=== PATIENT | female | born 1960 | race African-American/Black ===

== ENCOUNTER 2022-04-25 05:45 | Inpatient (IN) | payer OTHER ==
[~2022-04-25] VITALS: Ht 157.5 cm; Wt 66.2 kg
--- NOTE | 2022-04-25 05:45 | NUR ---
PT OFFLOADED TO BED 9
[2022-04-25 05:48] VITALS: BP 157/88
--- NOTE | 2022-04-25 06:00 | NUR ---
Patient resting in bed, A/Ox4, chest and fall symmetrical, no s/s of distress, patient on monitor.
--- NOTE | 2022-04-25 06:04 | NUR ---
ER physician at bedside assessing patienet
[2022-04-25] MEDS ORDERED: IPRATROPIUM 0.02% 0.5 MG/2.5 ML NEBU INH ONE (06:05)
[2022-04-25] MEDS ORDERED: ALBUTEROL 0.083% 2.5 MG/3 ML NEBU INH ONE ×2 (06:05→08:25)
[2022-04-25] MEDS ORDERED: methylPREDNISolone SS 125 MG/2 ML VIAL IVP ONE (06:05)
[2022-04-25] MEDS ORDERED: MAG SULF 2000 MG/WATER PREMIX 50 ML IV ONE (06:05)
[2022-04-25] MEDS ORDERED: NACL 0.9% 1,000 ML IV ONE (06:50)
--- NOTE | 2022-04-25 07:12 | NUR ---
Change of shift report given to AM shift Nurse Enoch LANE. AM shift Nurse Enoch RN verbalized understanding of report, no further questions.
--- NOTE | 2022-04-25 07:19 | NUR ---
report received from frank austin. pt aao x4. resp even and nonlabored. reports feeling better. rt @ bedside.on 2 lpm via nc spo2 91 %. mag sulf iv running. tachy @ 110. pending dispo
--- NOTE | 2022-04-25 07:53 | NUR ---
lab @ [facility] for blood draw
--- NOTE | 2022-04-25 08:25 | NUR ---
called rt for breathing tx
[2022-04-25 08:27] LABS: BASOPHILS % (AUTO) 0.2 % (0.0-2.0); EOSINOPHILS % (AUTO) 0.1 % (0.0-4.0); HEMATOCRIT 42.2 % (36-48); HEMOGLOBIN 13.9 g/dL (12.0-16.0); LYMPHOCYTES # (AUTO) 3.3 K/uL (2.5-16.5); LYMPHOCYTES % (AUTO) 21.5 % (20.5-51.1); MEAN CORPUSCULAR HEMOGLOBIN 29 pg (27-31); MEAN CORPUSCULAR HGB CONC 33 g/dL (33-37); MEAN CORPUSCULAR VOLUME 89.1 fL (80-94); MONOCYTES % (AUTO) 6.4 % (1.7-9.3); NEUTROPHILS % (AUTO) 71.8 % (42.2-75.2); PLATELET COUNT (AUTO) 312 K/uL (140-450); RED BLOOD CELL COUNT(AUTO) 4.73 MIL/uL (4.20-5.40); WHITE BLOOD COUNT (AUTO) 15.3 K/uL (4.8-10.8)
[2022-04-25 08:33] LABS: ALBUMIN 3.6 g/dL (3.4-5.0); ANION GAP 16.1 (8-16); ASPARTATE AMINOTRANSFERASE 10 U/L (15-37); CHLORIDE 92 mmol/L (98-107); CREATININE 0.9 mg/dL (0.6-1.3); GFR ARICAN-AMERICAN 82 mL/min (>90); POTASSIUM 4.1 mmol/L (3.5-5.1); SODIUM SERUM 131 mmol/L (136-145); TOTAL BILIRUBIN 0.9 mg/dL (0.0-1.0); UREA NITROGEN, BLOOD 12 mg/dL (7-18)
[2022-04-25 08:34] LABS: GLUCOSE 426 mg/dL (74-106)
[2022-04-25] MEDS ORDERED: INSULIN REGULAR, HUMAN 100 UNIT/ML VIAL IVP ONE (09:15)
[2022-04-25] MEDS ORDERED: OXYC40TA PO (10:20)
[2022-04-25] MEDS ORDERED: METF-346 PO (10:20)
--- NOTE | 2022-04-25 10:39 | NUR ---
repeat bs 361. pt aao x4. resp even and nonlabored. pending admission
--- NOTE | 2022-04-25 11:04 | NUR ---
Patient will be admitted to care of . Admited to TELE. Will go to room. Belongings list completed. Report to .
[2022-04-25] MEDS ORDERED: ONDANSETRON 4 MG/2 ML VIAL IVP PRN (11:10)
[2022-04-25] MEDS ORDERED: ACETAMINOPHEN 325 MG TAB PO PRN (11:10)
[2022-04-25] MEDS ORDERED: DEXTROSE 50% 50 ML SYR IVP PRN (11:10)
[2022-04-25] MEDS ORDERED: HYDROcodone/APAP 7.5/325 MG 1 TAB PO PRN (11:10)
[2022-04-25] MEDS ORDERED: AZITHROMYCIN 250 MG TAB PO SCH (11:16)
--- NOTE | 2022-04-25 11:43 | NUR ---
RECIEVED PATIENT FROM ED.GOT REPORT FROM ED NURSE.PATIENTS VS ON ADMISSION BP 112/69,18 RR, 85 KY, 95% SATURATION ,ON 2L NC.POC DISCUSSED.ALL SAFETY MEASURES IN PLACE.CALL
[2022-04-25 12:06] LABS: CHOL/HDL RATIO 4.1 (1-4.5); FREE T4 (FREE THYROXINE) 1.35 ng/dL (0.76-1.46); MAGNESIUM 2.2 mg/dL (1.8-2.4); PHOSPHORUS 3.9 mg/dL (2.5-4.9); THYROID STIMULATING HORMONE 0.33 uIU/mL (0.34-3.74)
[2022-04-25] MEDS: BLOOD GLUCOSE MONITORING 1 DEV DEV FS SCH ×3 (12:17→20:35)
[2022-04-25] MEDS: INSULIN LISPRO SLIDING SCALE 100 UNITS/ML VIAL SUBQ PRN ×3 (12:49→20:36)
[2022-04-25] MEDS: methylPREDNISolone SS 125 MG/2 ML VIAL IVP SCH ×2 (13:15→20:37)
--- NOTE | 2022-04-25 15:18 | NUR ---
PATIENT COMPLAINS OF PAIN,REFUSING NORCO.PAGED DR REGARDING THE RECONCILE MEDS.
[2022-04-25] MEDS ORDERED: oxyCODONE 40 MG TABER PO PRN (15:25)
[2022-04-25 16:00] VITALS: BP 99/69
--- NOTE | 2022-04-25 16:06 | NUR ---
PATIENT HAS BEEN SCREENED AND CATEGORIZED MODERATE NUTRITION RISK. PATIENT WILL BE SEEN WITHIN 3-5 DAYS OF ADMISSION. REVIEWED BY NEETA SALTER RD Addendum: 04/28/22 at [address] FNS CONSULT HAS BEEN RECEIVED FOR UNCONTROLLED DIABETES. PATIENT HAS BEEN RE-SCREENED HIGH RISK AND WILL BE SEEN WITHIN 1-2 DAYS OF RECEIVING THE FNS CONSULT. NEETA SALTER RD
[2022-04-25] MEDS: oxyCODONE 10 MG TABER PO PRN (16:51)
[2022-04-25] MEDS: GABAPENTIN 100 MG CAP PO SCH (17:00)
[2022-04-25] MEDS: metFORMIN 500 MG TAB PO SCH (17:12)
[2022-04-25 18:08] LABS: APPEARANCE,URINE CLEAR (CLEAR); BILIRUBIN,URINE NEGATIVE (NEGATIVE); BLOOD, URINE NEGATIVE (NEGATIVE); COLOR,URINE YELLOW (YELLOW); LEUKOCYTE ESTERASE ,URINE NEGATIVE (NEGATIVE); NITRITE, URINE NEGATIVE (NEGATIVE); UGLUCOSE 3+ (NEGATIVE)
[2022-04-25 18:47] LABS: BARBITURATE, URINE NEGATIVE ng/ml (NEG <=200); BENZODIAZEPINE, URINE NEGATIVE ng/mL (NEG <=200); CANNABINOID, URINE NEGATIVE ng/mL (NEG <=50); COCAINE, URINE NEGATIVE ng/mL (NEG <=300); OPIATE, URINE NEGATIVE ng/mL (NEG <=2000); PHENCYCLIDINE SCREEN,URINE NEGATIVE ng/mL (NEG <=25)
--- NOTE | 2022-04-25 19:30 | NUR ---
RECEIVED PT IN BED AWAKE, ALERT AND ORIENTED X 4. DENIES PAIN. DENIES SHORTNESS OF BREATH. SKIN WARM AND DRY TO TOUCH. BED IN THE LOWEST AND LOCKED POSITION FOR SAFETY, CALL LIGHT IN REACH.
--- NOTE | 2022-04-25 19:30 | NUR ---
ENDORSED PATIENT TO SENIOR TRAINING AND DEVELOPMENT REP NURSE FOR CONTINUITY OF CARE,ON 4L NASAL CANNULA.REPORTED MD REGARDING THE COMPLAINS OF COUGH.NO SIGNS OF DISTRESS NOTED.MURSS1
[2022-04-25 20:00] VITALS: BP 114/63
--- NOTE | 2022-04-25 20:18 | NUR ---
INFORMED DR. AVILA THAT BLOOD SUGAR IS 406 REPEATED 404, 10 UNITS OF HUMULOG TO BE GIVEN PER SLIDING SCALE, PER MD NO ADDITIONAL ORDER.
[2022-04-25] MEDS: DOCUSATE SODIUM 100 MG GELCAP PO SCH (20:37)
[2022-04-25] MEDS: guaiFENesin 20 MG/ML UDC PO PRN (20:37)
[2022-04-25] MEDS: ENALAPRIL 10 MG TAB PO SCH (20:37)
[2022-04-25] MEDS: ATORVASTATIN 20 MG TAB PO SCH ×2 (20:37→20:42)
[2022-04-26] VITALS: BP 105/77
--- NOTE | 2022-04-26 00:09 | NUR ---
INFORMED DR. AVILA THAT PT IS TAKING OXYCODONE EVERY 8 HRS, PER KEEP EVERY 12 HRS/PRN, KEY CARRIER WAS MADE AWARE AND SPOKE WITH PT, AND INFORMED MD THAT THIS IS PT'S PAIN MANAGEMENT ORDER. PER MD WILL SEE PT IN AM BUT NO CHANGE IN FREQUENCY. RN AND KEY CARRIER SPOKE WITH PT, AGREED TO STAY. PROVIDED HOT TEA AND INFORMED PT THAT WILL GIVE MEDICATION SOON IT CAN BE GIVEN. PT AGREEABLE AT THIS TIME. CALL LIGHT IN REACH, ENCOURAGED TO CALL IF ASSISTANCE IS NEEDED.
--- NOTE | 2022-04-26 01:12 | NUR ---
ROUNDING DONE, PT WITH EYES CLOSED. BREATHING EVEN AND UNLABORED. CALL LIGHT IN REACH.
[2022-04-26] MEDS: guaiFENesin 20 MG/ML UDC PO PRN ×2 (02:06→21:22)
[2022-04-26] MEDS: ALBUTEROL SULFATE/IPRATROPIU 3 ML SOL IH SCH ×4 (02:19→19:08)
[2022-04-26 04:00] VITALS: BP 128/75
[2022-04-26] MEDS: oxyCODONE 10 MG TABER PO PRN ×3 (04:34→20:54)
[2022-04-26] MEDS: methylPREDNISolone SS 125 MG/2 ML VIAL IVP SCH (05:14)
[2022-04-26 05:46] LABS: BASOPHILS % (AUTO) 0.1 % (0.0-2.0); HEMATOCRIT 41.5 % (36-48); HEMOGLOBIN 13.4 g/dL (12.0-16.0); MEAN CORPUSCULAR HEMOGLOBIN 29 pg (27-31); MEAN CORPUSCULAR HGB CONC 32 g/dL (33-37); MEAN CORPUSCULAR VOLUME 89.5 fL (80-94); MONOCYTES # (AUTO) 0.4 K/uL (0.8-1.0); MONOCYTES % (AUTO) 2.7 % (1.7-9.3); NEUTROPHILS # (AUTO) 12.6 K/uL (1.8-7.7); NEUTROPHILS % (AUTO) 90.2 % (42.2-75.2); PLATELET COUNT (AUTO) 304 K/uL (140-450); RED BLOOD CELL COUNT(AUTO) 4.63 MIL/uL (4.20-5.40); RED CELL DISTRIBUTION WIDTH 13.7 % (11.6-13.7)
--- NOTE | 2022-04-26 06:13 | NUR ---
ASSISTED PT TO THE BATHROOM AND BACK IN BED, VOIDED WITHOUT DIFFICULTY. MADE COMFORTABLE, PROVIDED WARM BLANKET. DENIES PAIN AT THIS TIME. ALL NEEDS ATTENDED TO. SAFETY PRECAUTIONS MAINTAINED DURING THE SHIFT, CALL LIGHT PLACED WITHIN REACH.
[2022-04-26 06:28] LABS: ANION GAP 14.7 (8-16); CARBON DIOXIDE 27.1 mmol/L (21-32); CREATININE 0.9 mg/dL (0.6-1.3); POTASSIUM 4.8 mmol/L (3.5-5.1)
[2022-04-26 06:29] LABS: MAGNESIUM 2.3 mg/dL (1.8-2.4); PHOSPHORUS 3.5 mg/dL (2.5-4.9)
[2022-04-26] MEDS: INSULIN LISPRO SLIDING SCALE 100 UNITS/ML VIAL SUBQ PRN ×4 (06:30→20:23)
[2022-04-26] MEDS: BLOOD GLUCOSE MONITORING 1 DEV DEV FS SCH ×4 (06:30→20:21)
--- NOTE | 2022-04-26 06:47 | NUR ---
LAB CALLED FOR A GLUCOSE CRITICAL RESULT OF 412. BLOOD SUGAR FINGER STICK DONE 369 MG/DL.
--- NOTE | 2022-04-26 07:23 | NUR ---
ENCOURAGED PATIENT FOR TERESA BREATH AND COUGH DURING THERAPY C/O NASAL DRYNESS WITH SUPPLEMENTAL OXYGEN USE POST HHN THERAPY ADDED HUMIDIFIER
[2022-04-26 08:00] VITALS: BP 141/69
[2022-04-26] MEDS: metFORMIN 500 MG TAB PO SCH ×2 (08:46→16:37)
[2022-04-26] MEDS: PANTOPRAZOLE 40 MG INJ VIAL IVP SCH (08:46)
[2022-04-26] MEDS: ASPIRIN 81 MG TAB.CHEW PO SCH (08:46)
[2022-04-26] MEDS: DOCUSATE SODIUM 100 MG GELCAP PO SCH ×2 (08:47→20:21)
[2022-04-26] MEDS: ENALAPRIL 10 MG TAB PO SCH ×2 (08:48→20:22)
--- NOTE | 2022-04-26 08:50 | NUR ---
PER PT, SHE DOES NOT TAKE GABAPENTIN IT GIVES HER HEADACHES, AND HER PRIMARY CARE PROVIDER HAS DISCONTINUED IT. PT ALSO REFUSED HEPARIN. WILL NOTIFY PRIMARY MD.
[2022-04-26] MEDS ORDERED: AZITHROMYCIN 250 MG TAB PO SCH (09:00)
[2022-04-26] MEDS: GABAPENTIN 100 MG CAP PO SCH ×3 (09:00→17:00)
--- NOTE | 2022-04-26 10:20 | NUR ---
POST AMBULATION WITH PHYSICAL THERAPY C/O SOB HHN PRN THERAPY GIVEN AT THIS TIME
[2022-04-26] MEDS: ALBUTEROL SULFATE/IPRATROPIU 3 ML SOL IH PRN ×2 (11:07→17:24)
[2022-04-26 12:00] VITALS: BP 125/68
[2022-04-26] MEDS: methylPREDNISolone SS 40 MG/ML VIAL IVP SCH ×2 (12:55→20:21)
--- NOTE | 2022-04-26 12:59 | NUR ---
ADMINISTERED PRN OXYCONTIN FOR GENERALIZED PAIN 10/16.
--- NOTE | 2022-04-26 13:12 | NUR ---
ADMINISTERED 10 UNITS OF HUMALOG PER SLIDING SCALE FOR BLOOD SUGAR 474. NOTIFIED DR. AVILA, PER DR. AVILA CONTINUE TO MONITOR SUGAR LEVELS.
--- NOTE | 2022-04-26 13:13 | NUR ---
SATURATION 98% ON SUPPLEMENTAL OXYGEN AT 3 LPM VIA NC POST HHN THERAPY TITRATED FIO2 TO 2 LPM SHILPI/DOMINGO NOTIFIED
[2022-04-26 16:00] VITALS: BP 152/76
--- NOTE | 2022-04-26 16:47 | NUR ---
NOTIFIED DR. AVILA OF BLOOD SUGAR 490. ADMINISTERED 10 UNITS OF HUMALOG PER SLIDING SCALE.
[2022-04-26] MEDS ORDERED: INSULIN LANTUS 100 UNITS/ML 10 ML VIAL SUBQ ONE (17:00)
--- NOTE | 2022-04-26 17:14 | NUR ---
PER DR. AVILA, NEW ORDER FOR 30 UNITS OF LANTUS DAILY, AND ONE TIME NOW TO BE GIVEN.
--- NOTE | 2022-04-26 19:17 | NUR ---
ENDORSED PT TO NIGHTSHIFT NURSE PADGETT FOR CONTINUITY OF CARE. PT IN STABLE CONDITION.
--- NOTE | 2022-04-26 19:20 | NUR ---
RECEIVED PT IN BED AWAKE,ALERT AND ORIENTED. DENIES PAIN. NO ACUTE RESPIRATORY DISTRESS. SKIN WARM AND DRY TO TOUCH. SAFETY PRECAUTION IN PLACE, CALL LIGHT IN REACH.
--- NOTE | 2022-04-26 19:40 | NUR ---
INFORMED DR. AVILA HR SUSTAINING 130'S, AND SHE STARTED FEELING PALPITATIONS AFTER GIVEN LANTUS. NEW ORDER GIVEN BY AND WILL BE CARRIED OUT.
[2022-04-26] MEDS ORDERED: PROPRANOLOL 20 MG TAB ONE (19:44)
[2022-04-26] MEDS: PROPRANOLOL 20 MG TAB PO SCH (19:47)
[2022-04-26 20:00] VITALS: BP 121/52
[2022-04-26] MEDS: ATORVASTATIN 20 MG TAB PO SCH (20:22)
--- NOTE | 2022-04-26 20:25 | NUR ---
BS-497 REPEATED 485 MG.DL, INSULIN GIVEN PER SLIDING SCALE, CALL PLACED TO DR. LIN. HUGGINS AWARE EARLIER DURING THE DAY AND STARTED ON LANTUS.
--- NOTE | 2022-04-26 21:00 | NUR ---
PER PT DOESN'T WANT TO BE BOTHERED IF SHE IS ASLEEP WITH VITAL SIGNS AND BREATHING TREATMENT, INFORMED RT OBDULIA. PER RT SHE WAS ALSO INFORMED BY PT.
[2022-04-27] VITALS: BP 126/75
[2022-04-27] MEDS: ALBUTEROL SULFATE/IPRATROPIU 3 ML SOL IH PRN (00:28)
[2022-04-27 04:00] VITALS: BP 138/84
[2022-04-27] MEDS: oxyCODONE 10 MG TABER PO PRN ×3 (04:59→20:37)
[2022-04-27] MEDS: guaiFENesin 20 MG/ML UDC PO PRN ×2 (04:59→11:14)
[2022-04-27] MEDS: methylPREDNISolone SS 40 MG/ML VIAL IVP SCH ×2 (05:22→20:36)
--- NOTE | 2022-04-27 05:51 | NUR ---
PT SAID SHE DID NOT WANT HER 0100 TX BECAUSE SHE NEEDED TO SLEEP. PT WAS COUGHING BADLY AND COULD NOT SLEEP SO ASKED FOR HER TREATMENT WHICH WAS GIVEN AT 0028. WITHIN 30 MINUTES PT'S COUGHING SUBSIDED AND SHE WAS ABLE TO FALL ASLEEP.
[2022-04-27 06:27] LABS: BASOPHILS % (AUTO) 0.3 % (0.0-2.0); HEMATOCRIT 41.2 % (36-48); HEMOGLOBIN 13.5 g/dL (12.0-16.0); LYMPHOCYTES # (AUTO) 1.2 K/uL (2.5-16.5); LYMPHOCYTES % (AUTO) 8.5 % (20.5-51.1); MEAN CORPUSCULAR HEMOGLOBIN 29 pg (27-31); MEAN CORPUSCULAR HGB CONC 33 g/dL (33-37); MEAN CORPUSCULAR VOLUME 89.2 fL (80-94); MONOCYTES # (AUTO) 0.5 K/uL (0.8-1.0); MONOCYTES % (AUTO) 3.6 % (1.7-9.3); NEUTROPHILS # (AUTO) 12.5 K/uL (1.8-7.7); NEUTROPHILS % (AUTO) 87.6 % (42.2-75.2); PLATELET COUNT (AUTO) 346 K/uL (140-450); RED BLOOD CELL COUNT(AUTO) 4.62 MIL/uL (4.20-5.40); WHITE BLOOD COUNT (AUTO) 14.2 K/uL (4.8-10.8)
--- NOTE | 2022-04-27 06:30 | NUR ---
PATIENT IS AWAKE, WATCHING TV. DENIES PAIN AT THIS TIME. ALL NEEDS ATTENDED TO. SAFETY PRECAUTIONS IN PLACE, CALL LIGHT REMAINS WITHIN REACH.
[2022-04-27 06:31] LABS: ANION GAP 11.7 (8-16); CARBON DIOXIDE 31.2 mmol/L (21-32); CREATININE 0.9 mg/dL (0.6-1.3); POTASSIUM 4.9 mmol/L (3.5-5.1)
[2022-04-27] MEDS: BLOOD GLUCOSE MONITORING 1 DEV DEV FS SCH ×4 (06:31→21:15)
[2022-04-27] MEDS: INSULIN LISPRO SLIDING SCALE 100 UNITS/ML VIAL SUBQ PRN ×4 (06:32→21:16)
[2022-04-27 06:40] LABS: MAGNESIUM 2.3 mg/dL (1.8-2.4); PHOSPHORUS 3.2 mg/dL (2.5-4.9)
[2022-04-27] MEDS: ALBUTEROL SULFATE/IPRATROPIU 3 ML SOL IH SCH ×3 (07:45→19:27)
[2022-04-27 08:00] VITALS: BP 129/82
[2022-04-27] MEDS ORDERED: INSULIN LANTUS 100 UNITS/ML 10 ML VIAL SUBQ SCH (09:00)
[2022-04-27] MEDS: GABAPENTIN 100 MG CAP PO SCH ×3 (09:00→17:09)
[2022-04-27] MEDS: DOCUSATE SODIUM 100 MG GELCAP PO SCH ×2 (10:47→20:39)
[2022-04-27] MEDS: ASPIRIN 81 MG TAB.CHEW PO SCH (10:48)
[2022-04-27] MEDS: PROPRANOLOL 20 MG TAB PO SCH ×2 (10:51→20:42)
[2022-04-27] MEDS: PANTOPRAZOLE 40 MG INJ VIAL IVP SCH (10:54)
[2022-04-27] MEDS: ENALAPRIL 10 MG TAB PO SCH ×2 (10:55→20:40)
[2022-04-27] MEDS: metFORMIN 500 MG TAB PO SCH ×2 (11:06→17:07)
[2022-04-27 12:00] VITALS: BP 121/73
--- NOTE | 2022-04-27 13:25 | NUR ---
PATIENT REFUSING HHN THERAPY AT THIS TIME REQUESTING AT A LATER TIME PATIENT VISITING WITH FAMILY/FRIEND NO DISTRESS NOTED
[2022-04-27] MEDS ORDERED: INSULIN NPH HUM/REG INSULIN HM 100 UNIT/ML 10 ML VIAL SUBQ ONE (14:40)
[2022-04-27 16:00] VITALS: BP 131/83
--- NOTE | 2022-04-27 19:20 | NUR ---
RECEIVED REPORT FROM DAY SHIFT NURSE FOR CONTINUITY OF CARE. PATIENT AWAKE AND STABLE IN BED. COMPLAINTS OF MODERATE PAIN AT THIS TIME. RUNNING ON 2L NASAL CANULA. IV SITE AT RIGHT FOREARM 20 GAUGE, INTACT AND PATENT. WILL CONTINUE TO MONITOR.
[2022-04-27 20:00] VITALS: BP 111/67
--- NOTE | 2022-04-27 20:00 | NUR ---
Patient's Plan of Care was discussed and reviewed with FABRICIO TOMAS.
--- NOTE | 2022-04-27 20:50 | NUR ---
ADMINISTERED IVP SOLU-MEDROL TO PATIENT. MEDICATION WAS GIVEN TO ME BY FABRICIO TOMAS TO ADMINISTER. I VERIFIED MEDICATION IN THE EMAR WITH FABRICIO TOMAS TO ENSURE ACCURACY OF MEDICATION BEING ADMINISTERED. PATIENT TOLERATED WELL. INFORMED FABRICIO TOMAS OF MEDICATION ADMINISTRATION.
--- NOTE | 2022-04-27 20:53 | NUR ---
IVP SOLU-MEDROL ADMINISTERED TO PATIENT BY DOMINGO Melgoza MEDICATION WAS VERIFIED WITH DOMINGO Melgoza TO ENSURE ACCURACY OF MEDICATION ADMINISTRATION.
[2022-04-27] MEDS: ATORVASTATIN 20 MG TAB PO SCH (21:00)
[2022-04-28] VITALS: BP 122/79
[2022-04-28] MEDS: ALBUTEROL SULFATE/IPRATROPIU 3 ML SOL IH PRN (01:21)
[2022-04-28 04:00] VITALS: BP 143/82
[2022-04-28] MEDS: oxyCODONE 10 MG TABER PO PRN ×3 (05:23→22:07)
[2022-04-28 06:22] LABS: BASOPHILS # (AUTO) 0.1 K/uL (0.00-0.22); BASOPHILS % (AUTO) 0.6 % (0.0-2.0); HEMATOCRIT 41.7 % (36-48); HEMOGLOBIN 13.7 g/dL (12.0-16.0); LYMPHOCYTES # (AUTO) 1.3 K/uL (2.5-16.5); LYMPHOCYTES % (AUTO) 13.1 % (20.5-51.1); MEAN CORPUSCULAR HEMOGLOBIN 30 pg (27-31); MEAN CORPUSCULAR HGB CONC 33 g/dL (33-37); MEAN CORPUSCULAR VOLUME 90.1 fL (80-94); MONOCYTES # (AUTO) 0.4 K/uL (0.8-1.0); MONOCYTES % (AUTO) 3.7 % (1.7-9.3); NEUTROPHILS # (AUTO) 8.5 K/uL (1.8-7.7); NEUTROPHILS % (AUTO) 82.6 % (42.2-75.2); PLATELET COUNT (AUTO) 325 K/uL (140-450); RED BLOOD CELL COUNT(AUTO) 4.63 MIL/uL (4.20-5.40); RED CELL DISTRIBUTION WIDTH 13.8 % (11.6-13.7); WHITE BLOOD COUNT (AUTO) 10.3 K/uL (4.8-10.8)
[2022-04-28 06:34] LABS: PHOSPHORUS 3.8 mg/dL (2.5-4.9)
[2022-04-28 06:35] LABS: ANION GAP 11.1 (8-16); CARBON DIOXIDE 30.9 mmol/L (21-32); CREATININE 0.9 mg/dL (0.6-1.3)
[2022-04-28] MEDS: ALBUTEROL SULFATE/IPRATROPIU 3 ML SOL IH SCH ×3 (07:08→19:55)
[2022-04-28] MEDS: BLOOD GLUCOSE MONITORING 1 DEV DEV FS SCH ×4 (07:44→20:33)
[2022-04-28] MEDS: INSULIN LISPRO SLIDING SCALE 100 UNITS/ML VIAL SUBQ PRN ×4 (07:45→20:37)
[2022-04-28 08:00] VITALS: BP 119/79
--- NOTE | 2022-04-28 08:02 | NUR ---
REPORT GIVEN TO DAY SHIFT NURSE FOR CONTINUITY OF CARE. PATIENT IN STABLE CONDITION, 0730 BLOOD GLUCOSE AT 234, 4 UNITS OF HUMALOG WAS ADMINISTERED.
[2022-04-28] MEDS ORDERED: INSULIN LANTUS 100 UNITS/ML 10 ML VIAL SUBQ SCH (09:00)
[2022-04-28] MEDS: GABAPENTIN 100 MG CAP PO SCH ×3 (09:00→17:00)
[2022-04-28] MEDS: methylPREDNISolone SS 40 MG/ML VIAL IVP SCH ×2 (09:27→20:17)
[2022-04-28] MEDS: PANTOPRAZOLE 40 MG INJ VIAL IVP SCH (09:28)
[2022-04-28] MEDS: ASPIRIN 81 MG TAB.CHEW PO SCH (09:39)
[2022-04-28] MEDS: ENALAPRIL 10 MG TAB PO SCH ×2 (09:42→20:24)
[2022-04-28] MEDS: PROPRANOLOL 20 MG TAB PO SCH ×2 (09:45→20:23)
[2022-04-28] MEDS: metFORMIN 500 MG TAB PO SCH ×2 (09:45→17:17)
[2022-04-28] MEDS: DOCUSATE SODIUM 100 MG GELCAP PO SCH ×2 (09:46→20:21)
[2022-04-28] MEDS: INSULIN LANTUS 100 UNITS/ML 10 ML VIAL SUBQ SCH (09:49)
[2022-04-28 12:00] VITALS: BP 123/86
--- NOTE | 2022-04-28 13:27 | NUR ---
SITTING ON SIDE OF BED FOR HHN THERAPY AND LUNCH TRAY SATURATION 97% ON SUPPLEMENTAL OXYGEN AT 3 LOPM VIA NC POST HHN THERAPY TITRATED FIO2 TO 2 LPM
--- NOTE | 2022-04-28 13:57 | NUR ---
SATURATION 96% ON 2LPM VIA NC TOLERATING WELL VANESARN NOTIFIED
--- NOTE | 2022-04-28 14:39 | NUR ---
04/28/22 RD INITIAL ASSESSMENT COMPLETED PLEASE REFER TO NUTRITION ASSESSMENT UNDER CARE ACTIVITY FOR ESTIMATED NUTRITIONAL NEEDS. 1. CONTINUE CCHO 60 GRAM DIET 2. MONITOR GLUCOSE LEVELS, GI, PO INTAKE, AND LAB VALUES. 3. RD TO FOLLOW-UP 3-5 DAYS, MODERATE RISK REVIEWED BY JOSE SALTER RD
[2022-04-28 16:00] VITALS: BP 123/73
[2022-04-28] MEDS: guaiFENesin 20 MG/ML UDC PO PRN (17:37)
--- NOTE | 2022-04-28 19:23 | NUR ---
ENDORSE PATIENT IN STABLE CONDITION TO PM SHIFT NURSE THAT PIV AT L. FOREARM SALINE LOCK.
--- NOTE | 2022-04-28 19:24 | NUR ---
RECD. RESTING IN BED, AWAKE, A/OX4. RESPIRATION EVEN AND UNLABORED. ON 02 AT 2 LITERS VIA N/C, 02 SAT - 97%. IV SALINE LOCK AT THE RIGHT FOREARM G20 , PATENT AND INTACT. WITH OCCASIONAL PRODUCTIVE COUGHING, MINIMAL WHITE SOMETIME YELLOW PHLEGM PER PATIENT, COMES OUT. ON SCHEDULED BREATHING TREATMENT. CARE AND MEDICATIONS FOR THE NIGHT DISCUSSED WITH PATIENT, VERBALIZED REFUSING SOME MEDICATION. EXPLAINED THE IMPORTANCE OF EACH BUT STILL REFUSED. DENIES PAIN 0/10.
[2022-04-28 20:00] VITALS: BP 130/87
--- NOTE | 2022-04-28 20:00 | NUR ---
Patient's Plan of Care was discussed and reviewed with SHAKER TENDER: YONATAN RILEY
--- NOTE | 2022-04-28 20:23 | NUR ---
SCHEDULED MEDICATIONS ADMINISTERED. TOLERATED WELL.
[2022-04-28] MEDS: ATORVASTATIN 20 MG TAB PO SCH (21:00)
[2022-04-29] VITALS: BP 125/79
--- NOTE | 2022-04-29 | NUR ---
SLEEPING COMFORTABLY IN BED. RESPIRATION EVEN AND UNLABORED.
--- NOTE | 2022-04-29 03:00 | NUR ---
REQUESTED TO BREATHING TREATMENT. RT CAME TO SEE PATIENT.
[2022-04-29] MEDS: ALBUTEROL SULFATE/IPRATROPIU 3 ML SOL IH PRN (03:05)
--- NOTE | 2022-04-29 03:05 | NUR ---
PRN BREATHING TX GIVEN AT PT REQUEST
[2022-04-29 04:00] VITALS: BP 136/82
--- NOTE | 2022-04-29 05:30 | NUR ---
RESTING IN BED, WATCHING TV. VERBALIZED FEELING BETTER.
[2022-04-29 05:35] LABS: BASOPHILS % (AUTO) 0.5 % (0.0-2.0); HEMATOCRIT 43.9 % (36-48); HEMOGLOBIN 14.4 g/dL (12.0-16.0); LYMPHOCYTES # (AUTO) 1.9 K/uL (2.5-16.5); LYMPHOCYTES % (AUTO) 18.2 % (20.5-51.1); MEAN CORPUSCULAR HEMOGLOBIN 29 pg (27-31); MEAN CORPUSCULAR HGB CONC 33 g/dL (33-37); MEAN CORPUSCULAR VOLUME 89.6 fL (80-94); MONOCYTES # (AUTO) 0.3 K/uL (0.8-1.0); MONOCYTES % (AUTO) 3.1 % (1.7-9.3); NEUTROPHILS # (AUTO) 8.1 K/uL (1.8-7.7); NEUTROPHILS % (AUTO) 78.2 % (42.2-75.2); PLATELET COUNT (AUTO) 341 K/uL (140-450); RED CELL DISTRIBUTION WIDTH 13.5 % (11.6-13.7); WHITE BLOOD COUNT (AUTO) 10.3 K/uL (4.8-10.8)
[2022-04-29 06:08] LABS: ANION GAP 12.4 (8-16); CREATININE 0.8 mg/dL (0.6-1.3); POTASSIUM 4.4 mmol/L (3.5-5.1)
[2022-04-29 06:22] LABS: MAGNESIUM 1.9 mg/dL (1.8-2.4); PHOSPHORUS 4.2 mg/dL (2.5-4.9)
[2022-04-29] MEDS: BLOOD GLUCOSE MONITORING 1 DEV DEV FS SCH ×4 (06:58→20:34)
[2022-04-29] MEDS: INSULIN LISPRO SLIDING SCALE 100 UNITS/ML VIAL SUBQ PRN ×4 (07:00→20:47)
--- NOTE | 2022-04-29 07:25 | NUR ---
ASSUMED CONTINUITY OF CARE. NO SIGNS AND SYMPTOMS OF ACUTE DISTRESS NOTED. INITIAL ASSESSMENT DONE. KEEP COMFORTABLE ON BED. CALL LIGHT WITHIN REACH.
--- NOTE | 2022-04-29 07:25 | NUR ---
CONDITION REMAIN STABLE. ENDORSED TO MONIKA REGALADO FOR CONTINUITY OF CARE.
[2022-04-29] MEDS ORDERED: VANCOMYCIN PER PHARMACY MC PRN (07:45)
[2022-04-29] MEDS: ALBUTEROL SULFATE/IPRATROPIU 3 ML SOL IH SCH ×3 (07:52→20:44)
[2022-04-29 08:00] VITALS: BP 133/87
[2022-04-29] MEDS: metFORMIN 500 MG TAB PO SCH ×2 (08:06→16:39)
[2022-04-29] MEDS: oxyCODONE 10 MG TABER PO PRN ×2 (08:07→16:39)
--- NOTE | 2022-04-29 08:33 | NUR ---
DC PLANNING ATTEMPTED TO MEET PT AT BEDSIDE HOWEVER, PT MEETING RT FOR BREATHING TX. SW TO FOLLOW
[2022-04-29] MEDS: DOCUSATE SODIUM 100 MG GELCAP PO SCH ×3 (09:00→20:36)
[2022-04-29] MEDS: GABAPENTIN 100 MG CAP PO SCH ×4 (09:00→16:40)
[2022-04-29] MEDS: PANTOPRAZOLE 40 MG INJ VIAL IVP SCH (09:05)
[2022-04-29] MEDS: methylPREDNISolone SS 40 MG/ML VIAL IVP SCH ×2 (09:05→20:36)
[2022-04-29] MEDS: ASPIRIN 81 MG TAB.CHEW PO SCH (09:34)
[2022-04-29] MEDS: ENALAPRIL 10 MG TAB PO SCH ×2 (09:34→20:36)
[2022-04-29] MEDS: PROPRANOLOL 20 MG TAB PO SCH ×2 (09:35→20:36)
[2022-04-29] MEDS: INSULIN LANTUS 100 UNITS/ML 10 ML VIAL SUBQ SCH (09:37)
--- NOTE | 2022-04-29 10:40 | NUR ---
WENT TO BATHROOM WITHOUT ASSISTANCE. TOLERATED WELL. WILL MONITOR.
[2022-04-29] MEDS: VANCOMYCIN HCL 1.25 GM in DEXTROSE 5% 250 ML IV SCH ×2 (11:02→22:37)
[2022-04-29 12:00] VITALS: BP 103/65
[2022-04-29] MEDS ORDERED: FUROSEMIDE 40 MG/4 ML VIAL IVP SCH (12:10)
--- NOTE | 2022-04-29 12:30 | NUR ---
DC PLANNING ASSESSMENT COMPLETE SEE ASSESSMENT FOR DETAILS PT REPORTS DC PLAN IS TO RETURN HOME WITH FAMILY PROVIDING TRANSPORTATION, WHEN MEDICALLY STABLE.
--- NOTE | 2022-04-29 15:37 | NUR ---
PHYSICAL THERAPY CO-SIGN The Physical Therapy Progress Notes documented by Seal Mixer have been reviewed. Reviewed/Co-Signed by: Raquel Estrada Documentation Done by: ADRIANNE ROMAN PTA Addendum: 04/29/22 at 1538 by Raquel Estrada PT Amended: Links added.
[2022-04-29 16:00] VITALS: BP 149/72
[2022-04-29] MEDS: MONTELUKAST SODIUM 10 MG TAB PO SCH (16:41)
--- NOTE | 2022-04-29 19:10 | NUR ---
REPORT GIVEN TO KRISTI SOMMER IN STABLE CONDITION.
--- NOTE | 2022-04-29 19:30 | NUR ---
RECEIVED PT FROM DAY RN FOR CONTINUITY OF CARE. PT AWAKE, ALERT AND ORIENTED X 4, SITTING ON BED. ON ROOM AIR, BREATHING EVEN AND UNLABORED. NO COMPLAINS OF PAIN. NO S/SX OF DISTRESS NOTED. SKIN IS WARM, DRY AND INTACT.IV ON R FA, G20. SL. ALL PRECAUTIONS IN PLACE. CALL LIGHT WITHIN REACH. WILL CONTINUE TO MONITOR.
[2022-04-29 20:00] VITALS: BP 130/92
[2022-04-29] MEDS: ATORVASTATIN 20 MG TAB PO SCH (20:36)
--- NOTE | 2022-04-29 21:00 | NUR ---
SCHEDULED MEDICATIONS GIVEN. PT TOLERATED WELL. WILL CONTINUE TO MONITOR.
[2022-04-30] MEDS: oxyCODONE 10 MG TABER PO PRN ×3 (01:20→18:13)
[2022-04-30] MEDS: guaiFENesin 20 MG/ML UDC PO PRN (03:12)
--- NOTE | 2022-04-30 03:59 | NUR ---
PT ASLEEP. BREATHING EVEN AND UNLABORED, NO S/SX OF RESPIRATORY DISTRESS. ALL PRECAUTIONS IN PLACE. CALL LIGHT WITHIN REACH. WILL CONTINUE TO MONITOR.
[2022-04-30 04:00] VITALS: BP 149/72
[2022-04-30 05:15] LABS: BASOPHILS % (AUTO) 0.3 % (0.0-2.0); EOSINOPHILS % (AUTO) 0.1 % (0.0-4.0); HEMATOCRIT 42.8 % (36-48); HEMOGLOBIN 13.9 g/dL (12.0-16.0); LYMPHOCYTES # (AUTO) 1.8 K/uL (2.5-16.5); LYMPHOCYTES % (AUTO) 15.1 % (20.5-51.1); MEAN CORPUSCULAR HEMOGLOBIN 29 pg (27-31); MEAN CORPUSCULAR HGB CONC 33 g/dL (33-37); MEAN CORPUSCULAR VOLUME 88.9 fL (80-94); MONOCYTES # (AUTO) 0.4 K/uL (0.8-1.0); MONOCYTES % (AUTO) 3.6 % (1.7-9.3); NEUTROPHILS # (AUTO) 9.8 K/uL (1.8-7.7); NEUTROPHILS % (AUTO) 80.9 % (42.2-75.2); PLATELET COUNT (AUTO) 324 K/uL (140-450); RED BLOOD CELL COUNT(AUTO) 4.81 MIL/uL (4.20-5.40); RED CELL DISTRIBUTION WIDTH 13.9 % (11.6-13.7); WHITE BLOOD COUNT (AUTO) 12.1 K/uL (4.8-10.8)
[2022-04-30 05:33] LABS: MAGNESIUM 1.8 mg/dL (1.8-2.4); PHOSPHORUS 3.9 mg/dL (2.5-4.9)
[2022-04-30 05:51] LABS: CARBON DIOXIDE 30.7 mmol/L (21-32); CREATININE 0.8 mg/dL (0.6-1.3); POTASSIUM 4.7 mmol/L (3.5-5.1)
[2022-04-30] MEDS: INSULIN LISPRO SLIDING SCALE 100 UNITS/ML VIAL SUBQ PRN ×4 (06:44→21:24)
[2022-04-30] MEDS: BLOOD GLUCOSE MONITORING 1 DEV DEV FS SCH ×4 (06:52→21:21)
[2022-04-30] MEDS: ALBUTEROL SULFATE/IPRATROPIU 3 ML SOL IH SCH ×3 (06:55→18:57)
--- NOTE | 2022-04-30 06:55 | NUR ---
PT IS STABLE. NO ACUTE EVENTS THROUGHOUT THE NIGHT.ALL NEEDS ATTENDED. NO S/SX OF DISTRESS AT THIS MOMENT. ALL PRECAUTIONS IN PLACE. CALL LIGHT WITHIN REACH. WILL ENDORSE TO DAY SHIFT NURSE.
--- NOTE | 2022-04-30 07:08 | NUR ---
ASSUMED CONTINUITY OF CARE. INITIAL ASSESSMENT DONE. KEEP COMFORTABLE ON BED. CALL LIGHT WITHIN REACH.
[2022-04-30 08:00] VITALS: BP 121/76
--- NOTE | 2022-04-30 08:00 | NUR ---
Patient's Plan of Care was discussed and reviewed with MANUFACTURING ENGINEERING PROFESSOR:
[2022-04-30] MEDS: metFORMIN 500 MG TAB PO SCH ×2 (08:10→17:03)
[2022-04-30] MEDS: GABAPENTIN 100 MG CAP PO SCH ×3 (09:00→17:00)
[2022-04-30] MEDS: DOCUSATE SODIUM 100 MG GELCAP PO SCH ×2 (09:00→21:05)
--- NOTE | 2022-04-30 09:13 | NUR ---
DR. INFANTE CAME SPOKE TO PT. AT BEDSIDE AND INFORMED PT. REFUSAL OF HEPARIN, GABAPENTIN, AND COLACE.
[2022-04-30] MEDS: ASPIRIN 81 MG TAB.CHEW PO SCH (09:14)
[2022-04-30] MEDS: PROPRANOLOL 20 MG TAB PO SCH ×2 (09:14→21:05)
[2022-04-30] MEDS: ENALAPRIL 10 MG TAB PO SCH ×2 (09:14→21:05)
[2022-04-30] MEDS: INSULIN LANTUS 100 UNITS/ML 10 ML VIAL SUBQ SCH (09:21)
[2022-04-30] MEDS: methylPREDNISolone SS 40 MG/ML VIAL IVP SCH ×2 (09:37→21:05)
[2022-04-30] MEDS: PANTOPRAZOLE 40 MG INJ VIAL IVP SCH (09:37)
[2022-04-30] MEDS: VANCOMYCIN HCL 1.25 GM in DEXTROSE 5% 250 ML IV SCH (10:01)
--- NOTE | 2022-04-30 14:10 | NUR ---
1300 BREATHING TREATMENT ON HOLD DUE TO PT SLEEPING. WILL TRY AGAIN.
[2022-04-30 16:00] VITALS: BP 126/65
[2022-04-30] MEDS: MONTELUKAST SODIUM 10 MG TAB PO SCH (17:03)
--- NOTE | 2022-04-30 19:04 | NUR ---
ENDORSED TO BONDERITE OPERATOR NURSE KRISTI SOMMER IN STABLE CONDITION.
--- NOTE | 2022-04-30 19:30 | NUR ---
RECEIVED PT FROM DAY RN FOR CONTINUITY OF CARE. PT AWAKE, ALERT AND ORIENTED X 4, SITTING ON BED. ON ROOM AIR, BREATHING EVEN AND UNLABORED. NO COMPLAINS OF PAIN. NO S/SX OF DISTRESS NOTED. SKIN IS WARM, DRY AND INTACT.IV ON R HAND G22. SL. ALL PRECAUTIONS IN PLACE. CALL LIGHT WITHIN REACH. WILL CONTINUE TO MONITOR.
[2022-04-30] MEDS: ATORVASTATIN 20 MG TAB PO SCH (21:00)
--- NOTE | 2022-04-30 21:30 | NUR ---
SCHEDULED MEDICATIONS GIVEN. PT TOLERATED WELL. WILL CONTINUE TO MONITOR.
[2022-04-30] MEDS ORDERED: VANCOMYCIN 1.25GM PREMIX 250 ML IV SCH (22:00)
[2022-05-01] MEDS: ALBUTEROL SULFATE/IPRATROPIU 3 ML SOL IH PRN (00:44)
[2022-05-01] MEDS: oxyCODONE 10 MG TABER PO PRN ×2 (02:28→10:28)
--- NOTE | 2022-05-01 02:38 | NUR ---
PT ASLEEP. BREATHING EVEN AND UNLABORED, NO S/SX OF RESPIRATORY DISTRESS. ALL PRECAUTIONS IN PLACE. CALL LIGHT WITHIN REACH. WILL CONTINUE TO MONITOR.
[2022-05-01 04:00] VITALS: BP 116/71
[2022-05-01] MEDS: BLOOD GLUCOSE MONITORING 1 DEV DEV FS SCH ×2 (06:33→10:36)
[2022-05-01] MEDS: INSULIN LISPRO SLIDING SCALE 100 UNITS/ML VIAL SUBQ PRN ×2 (06:34→10:36)
[2022-05-01] MEDS: ALBUTEROL SULFATE/IPRATROPIU 3 ML SOL IH SCH (06:49)
[2022-05-01] MEDS: metFORMIN 500 MG TAB PO SCH (08:17)
[2022-05-01] MEDS: DOCUSATE SODIUM 100 MG GELCAP PO SCH (08:24)
[2022-05-01] MEDS: ASPIRIN 81 MG TAB.CHEW PO SCH (08:24)
[2022-05-01] MEDS: PROPRANOLOL 20 MG TAB PO SCH (08:25)
[2022-05-01] MEDS: GABAPENTIN 100 MG CAP PO SCH ×2 (08:25→12:42)
[2022-05-01] MEDS: ENALAPRIL 10 MG TAB PO SCH (08:25)
[2022-05-01] MEDS: methylPREDNISolone SS 40 MG/ML VIAL IVP SCH (09:00)
[2022-05-01] MEDS: PANTOPRAZOLE 40 MG INJ VIAL IVP SCH (09:00)
[2022-05-01] MEDS ORDERED: ASPI81CT95 PO (10:33)
[2022-05-01] MEDS ORDERED: ATOR20TA40 PO (10:33)
[2022-05-01] MEDS ORDERED: ENAL10TA51 PO (10:33)
[2022-05-01] MEDS ORDERED: GLUC-805 FS (10:33)
[2022-05-01] MEDS ORDERED: PRED20TA5 PO (10:33)
[2022-05-01] MEDS ORDERED: MONT10TA35 PO (10:33)
[2022-05-01] MEDS ORDERED: GABA-636 PO (10:33)
[2022-05-01] MEDS: INSULIN LANTUS 100 UNITS/ML 10 ML VIAL SUBQ SCH (10:35)
[2022-05-01] MEDS ORDERED: BLOO1EAC9 MC (10:35)
[2022-05-01 12:34] VITALS: BP 132/70
--- NOTE | 2022-05-01 14:55 | NUR ---
DISCHARGE TO HOME WITH ALL BELONGINGS AND A COPY OF DISCHARGE INSTRUCTIONS. INTACT 22 GAUGE INTRAVENOUS CATHETER TIP REMOVAL. IDENTIFICATION BRACELET REMOVAL. PRIVATE AUTOMOBILE OF FAMILY/FRIEND ASSIST WITH TRANSPORTATION .
== END 2022-05-01 15:52 | disposition home or self-care (01) | DRG 871 ==
LOC: MED 05:45 → MTU 09:47
DX: A41.9 Sepsis, unspecified organism (principal); J69.0 Pneumonitis due to inhalation of food and vomit; J96.20 Acute and chronic respiratory failure, unspecified whether with hypoxia or hypercapnia; J44.1 Chronic obstructive pulmonary disease with (acute) exacerbation; E87.1 Hypo-osmolality and hyponatremia; E66.2 Morbid (severe) obesity with alveolar hypoventilation; J45.901 Unspecified asthma with (acute) exacerbation; I50.40 Unspecified combined systolic (congestive) and diastolic (congestive) heart failure; J44.0 Chronic obstructive pulmonary disease with (acute) lower respiratory infection; K21.9 Gastro-esophageal reflux disease without esophagitis; I11.0 Hypertensive heart disease with heart failure; E11.65 Type 2 diabetes mellitus with hyperglycemia; Z20.822 Contact with and (suspected) exposure to COVID-19; Z88.8 Allergy status to other drugs, medicaments and biological substances; Z90.710 Acquired absence of both cervix and uterus; Z68.26 Body mass index [BMI] 26.0-26.9, adult
CPT/HCPCS: 36415; 71045; 80048; 80053; 80305; 81003; 82150; 82948; 83036; 83605; 83690; 83735; 83880; 84100; 84439; 84443; 84484; 85025; 85610; 85730; 87040; 87081; 87086; 93005; 94640; 96361; 96365; 96375; 97110; 97112; 97116; 97163-GP; 97530; 99285; C9113; J0696; J1644; J1815; J2920; J2930; J3370; J3372; J3475; J7060; J7613; J7644; Q0092

== ENCOUNTER 2023-10-17 09:21 | Emergency (ER) | payer OTHER ==
[~2023-10-17] VITALS: Ht 157.5 cm; Wt 135.6 kg
[~2023-10-17 09:21] MED LIST: ASPI81CT95 PO; ATOR20TA40 PO; BLOO1EAC9 MC; ENAL10TA51 PO; GABA-636 PO; GLUC-805 FS; METF-346 PO; MONT-72 PO; OXYC40TA3 PO; PRED20TA5 PO
[2023-10-17 09:22] VITALS: BP 140/92; PULSE 100; RESP 20; TEMP 98; O2SAT 98
[2023-10-17 09:46] VITALS: O2SAT 98
[2023-10-17 11:14] LABS: APPEARANCE,URINE CLEAR (CLEAR); BILIRUBIN,URINE 2+ (NEGATIVE); BLOOD, URINE 3+ (NEGATIVE); COLOR,URINE RED (YELLOW); LEUKOCYTE ESTERASE ,URINE TRACE (NEGATIVE); NITRITE, URINE POSITIVE (NEGATIVE); PH,URINE 6.5 (5.0-9.0); PROTEIN,URINE 3+ (NEGATIVE); UGLUCOSE NEGATIVE (NEGATIVE)
[2023-10-17 11:21] LABS: ICTOTEST NEGATIVE (NEGATIVE); RBC,URINE TOO NUMEROUS TO COUN /HPF (0-5)
[2023-10-17 11:22] LABS: BACTERIA,URINE >30 (MANY) /HPF (None Seen); MUCUS,URINE None Seen /LPF (None Seen); SQUAMOUS EPITHELIAL CELL,UR None Seen /LPF (0-3 (FEW)); TRICHOMONAS,URINE None Seen /HPF (None Seen); WHITE BLOOD CELL CASTS,URINE None Seen /LPF (None Seen); YEAST,URINE None Seen /HPF (None Seen)
[2023-10-17] MEDS ORDERED: CEPH-588 PO (11:27)
[2023-10-17] MEDS: cephALEXin 500 MG CAP PO ONE (11:39)
== END 2023-10-17 11:40 | disposition home or self-care (01) ==
LOC: MED 09:21
DX: N39.0 Urinary tract infection, site not specified (principal); J45.909 Unspecified asthma, uncomplicated; E11.9 Type 2 diabetes mellitus without complications; I10 Essential (primary) hypertension; Z79.899 Other long term (current) drug therapy; Z79.82 Long term (current) use of aspirin
CPT/HCPCS: 81001; 87086; 99283